=== PATIENT | male | born 1980 | race Caucasian/White ===

== ENCOUNTER 2019-04-06 10:46 | Emergency (ER) | payer OTHER, SELFPAY ==
[~2019-04-06] VITALS: Ht 198.1 cm; Wt 101.7 kg
[2019-04-06 11:03] VITALS: BP 119/79
[2019-04-06] MEDS ORDERED: KETOROLAC 30 MG/1 ML ONE (11:46)
[2019-04-06] MEDS ORDERED: KETOROLAC 30 MG/1 ML IM ONE (12:00)
== END 2019-04-06 13:04 | disposition home or self-care (01) ==
LOC: ED 12:50
DX: S16.1XXA Strain of muscle, fascia and tendon at neck level, initial encounter (principal); F17.200 Nicotine dependence, unspecified, uncomplicated; Y08.89XA Assault by other specified means, initial encounter; Y93.89 Activity, other specified; Y92.89 Other specified places as the place of occurrence of the external cause; Y99.8 Other external cause status
CPT/HCPCS: 70360; 96372; 99283; J1885

== ENCOUNTER → 2020-09-13 | Outpatient (CLI) | payer BC, OTHER | END | disposition home or self-care (01) | LOC: CVU 07:07 | PROVIDERS: ATTEND Internal Medicine Cardiovascular Disease | DX: R55 Syncope and collapse (principal) | CPT/HCPCS: 93306; 93356 ==